=== PATIENT | male | born 1975 | race Caucasian/White ===

== ENCOUNTER 2018-08-15 20:25 | Observation (INO) | payer BC, OTHER ==
[2018-08-15] MEDS ORDERED: CLINDAMYCIN 600MG/50ML PREMIX 600 MG/50 ML BAG IVPB ONE ×2 (20:36→22:22)
[2018-08-15 20:50] LABS: BASO % 0.3 % (0-6); EOS % 4.3 % (0-6); GRAN % 55.5 % (47-80); HEMATOCRIT 43.8 % (42.0-52.0); HEMOGLOBIN 15.2 gm/dl (14.0-18.0); LYMPH % 28.3 % (16-45); MEAN CELL VOLUME 88.5 fl (81-97); MEAN CORPUSCULAR HEMOGLOBIN 30.7 pg (27-33); MEAN CORPUSCULAR HGB CONC 34.7 g/dl (32-36); MEAN PLATELET VOLUME 9.6 fl (7.4-10.4); MONO % 11.6 % (0-9); PLATELET COUNT 286 K/uL (130-400); RED BLOOD COUNT 4.95 M/uL (4.40-5.70); RED CELL DISTRIBUTION WIDTH 12.8 % (11.5-14.5); WHITE BLOOD COUNT W/O DIFF 8.6 K/uL (4.2-12.2)
--- NOTE | 2018-08-15 20:50 | Emergency Department Record ---
History of Present Illness - General Chief complaint: Lower Extremity Pain Stated complaint: LT LEG INFECTION Time Seen by Provider: 08/15/18 20:35 Source: Patient Mode of Arrival: Ambulatory Limitations: No limitations - History of Present Illness Initial comments: 43 yo male presents to ED for evaluation of a worsening skin infection overlying the left knee. Patient reports that he was seen 48 hours ago at an Urgent Care, started on Levaquin. Patient reports that his redness and warmth has spread beyond previously outlined area. Patient reports a history of NIDDM. Patient denies fevers, chills, nausea, or vomiting symptoms. MD Complaint: Other Onset/Timin -: Days(s) Location: Left, Knee Severity scale (1-10): 4 Consistency: Constant Improves with: Rest Worsens with: Walking, Weight bearing Associated Symptoms: Denies other symptoms - Related Data Home Medications Medication Instructions Recorded Confirmed Last Taken Atenolol 100 mg PO DAILY 08/15/18 08/15/18 08/15/18 Levofloxacin [Levaquin] 500 mg PO DAILY 08/15/18 08/15/18 08/15/18 Losartan Potassium 100 mg PO DAILY 08/15/18 08/15/18 08/15/18 Metformin HCl 1,000 mg PO BID 08/15/18 08/15/18 08/15/18 Allergies Allergy/AdvReac Type Severity Reaction Status Date / Time No Known Drug Allergies Allergy Verified 08/15/18 20:44 Travel Screening - Travel/Exposure Within Last 30 Days Have you traveled within the last 30 days?: No - Travel Symptoms Symptom Screening: None Review of Systems Constitutional: Denies: Chills, Fever, Malaise, Night sweats Eyes: Denies: Eye discharge, Eye pain ENT: Denies: Congestion, Ear pain, Epistaxis Respiratory: Denies: Cough, Dyspnea Cardiovascular: Denies: Chest pain, Dyspnea on exertion Endocrine: Denies: Fatigue Gastrointestinal: Denies: Abdominal pain, Nausea, Vomiting Genitourinary: Denies: Incontinence, Retention Musculoskeletal: Denies: Arthralgia, Back pain, Gout, Joint swelling Skin: Reports: Change in color, Other (Erythema of the left knee extending to the popliteal region on examination.). Denies: Bruising, Change in hair/nails Neurological: Denies: Abnormal gait, Confusion, Headache, Seizure Psychiatric: Denies: Anxiety Hematological/Lymphatic: Denies: Anemia, Blood Clots Past Medical History - SOCIAL HISTORY Smoking Status: Never smoker - RESPIRATORY Hx Respiratory Disorders: No - CARDIOVASCULAR Hx Cardio Disorders: Yes Hx Hypertension: Yes - NEURO Hx Neuro Disorders: No - GI Hx GI Disorders: No - Hx Genitourinary Disorders: No - ENDOCRINE Hx Endocrine Disorders: Yes Hx Diabetes: Yes - MUSCULOSKELETAL Hx Musculoskeletal Disorders: No - PSYCH Hx Psych Problems: No - HEMATOLOGY/ONCOLOGY Hx Hematology/Oncology Disorders: No Family Medical History Any Significant Family History?: Yes Hx Diabetes: Mother Hx Heart Disease: Father Hx HTN: Father Physical Exam - General General Appearance: Alert, Oriented x3, Cooperative, Mild distress Limitations: No limitations - Head Head exam: Atraumatic, Normocephalic, Normal inspection Head exam detail: negative: Abrasion, Contusion, Fraser's sign, General tenderness, Hematoma, Laceration - Eye Eye exam: Normal appearance. negative: Conjunctival injection, Periorbital swelling, Periorbital tenderness, Scleral icterus - ENT Ear exam: negative: Auricular hematoma, Auricular trauma Nasal Exam: negative: Active bleeding, Discharge, Dried blood, Foreign body Mouth exam: negative: Drooling, Laceration, Muffled voice, Tongue elevation - Neck Neck exam: Normal inspection. negative: Meningismus, Tenderness - Respiratory Respiratory exam: Normal lung sounds bilaterally. negative: Rales, Respiratory distress, Rhonchi, Stridor - Cardiovascular Cardiovascular Exam: Regular rate, Normal rhythm, Normal heart sounds - GI/Abdominal GI/Abdominal exam: Soft. negative: Rebound, Rigid, Tenderness - Rectal Rectal exam: Deferred - exam: Deferred - Extremities Extremities exam: Other (Erythema and warmth to the left knee anteriorly extending laterally to the politeal region on examination, no evidence for septic joint on examination.). negative: Calf tenderness, Pedal edema, Tenderness - Back Back exam: Denies: CVA tenderness (R), CVA tenderness (L) - Neurological Neurological exam: Alert, Normal gait, Oriented X3 - Psychiatric Psychiatric exam: Normal affect, Normal mood - Skin Skin exam: Normal color. negative: Abrasion Type of lesion: negative: abrasion Course Vital Signs 08/15/18 20:30 Temperature 98.4 F Pulse Rate [ 70 Pulse Ox Probe] Respiratory 20 Rate Blood Pressure 162/89 [Left Arm] Pulse Ox 96 - Reevaluation(s) Reevaluation #1: 08/15/18 21:54 Laboratory studies were reviewed, CRP 5.9, ESR 14, Glucose 144. Labs are otherwise grossly unremarkable for an acute process. Patient was updated on all results, will admit for failed outpatient treatment/ NIDDM of cellulitis of LLE. Patient agrees with the plan of care as discussed. Medical Decision Making - Lab Data Result diagrams: 08/15/18 20:45 08/15/18 20:45 Disposition Disposition: Admit Clinical Impression: Cellulitis of left lower extremity, NIDDY (non-insulin dependent diabetes mellitus in young) Disposition: Still a Patient at [facility] Decision to Admit: Admit from ER Decision to Admit Date: 08/15/18 Decision to Admit Time: 20:50 Condition: (2) Stable Forms: Patient Portal Access Time of Disposition: 20:50 Quality - Quality Measures Quality Measures: N/A - Blood Pressure Screening Does Patient Have Any of the Following: No Blood Pressure Classification: Pre-Hypertensive BP Reading Systolic Measurement: 150 Diastolic Measurement: 85 Screening for High Blood Pressure: < Pre-Hypertensive BP, F/U Documented > [ [id number]] Pre-Hypertensive Follow-up Interventions: Referral to alternative/primary care provider.
[2018-08-15 21:04] LABS: BLOOD UREA NITROGEN 12 mg/dL (6-20); CREATININE 0.7 mg/dL (0.7-1.2); EST GLOMERULAR FILTRATION RATE > 60 mL/min
[2018-08-15 21:05] LABS: TOTAL PROTEIN 7.8 g/dL (6.6-8.7)
[2018-08-15 21:07] LABS: GLUCOSE,RANDOM 144 mg/dL (74-109)
[2018-08-15 21:09] LABS: ALT/SGPT 39 U/L (<41)
[2018-08-15 21:10] LABS: ALB/GLOB RATIO 1.6 (1.1-1.8); ALBUMIN 4.8 g/dL (4.0-5.0); ALKALINE PHOSPHATASE 85 U/L (40-129); AST/SGOT 19 U/L (10.0-50.0); C-REACTIVE PROTEIN 5.89 mg/dL (<0.5)
[2018-08-15 21:23] LABS: ERYTHROCYTE SEDIMENTATION RATE 14 mm/hr (0-15)
[2018-08-15] MEDS ORDERED: ACETAMINOPHEN 500 MG TABLET PO PRN (22:22)
[2018-08-15] MEDS ORDERED: METFORMIN 500 MG TABLET PO SCH (22:22)
[2018-08-15] MEDS ORDERED: 0.9 % SODIUM CHLORIDE 1000ML 1,000 ML IV PRN (22:22)
[2018-08-16] MEDS ORDERED: LOSARTAN POTASSIUM 100 MG TABLET PO SCH (10:00)
[2018-08-16] MEDS ORDERED: ATENOLOL 50 MG TABLET PO SCH (10:00)
[2018-08-16] MEDS: PATIENT OWN MED: METFORMIN 1000 MG PO SCH ×2 (10:54→21:42)
[2018-08-16] MEDS: CLINDAMYCIN 600MG/50ML PREMIX 600 MG/50 ML BAG IVPB SCH ×2 (10:55→18:01)
--- NOTE | 2018-08-16 12:45 | History & Physical ---
History of Present Illness - Date of Service Date of Service for History & Physical: 08/16/18 - History of Present Illness Admitting Diagnosis: Cellulitis left lower extremity: failed outpatient. NIDDM History of Present Illness: PMHx: Diabetes type 2, HTN Pt states that he went to the 3 days ago for redness seen on his knee. He was given levaquin and noticed that the pain and redness was worsening. He then proceeded to come to the ED for re-evaluation. States that his last HbA1C was done 6-9 months ago and was 6.8. He states that he only uses metformin for control. Has not had any procedures done in the area or been in the hospital for the last 3 months. Vitals: T 98.4, P 70, BP 162/89, RR 20, 96% on RA Labs: CRP 6.89 otherwise wnl. Given: Clindamycin 600mg Pt states that the erythema has decreased in intensity and the pain has also gone down since starting IV abx. Travel Screening - Travel/Exposure Within Last 30 Days Have you traveled within the last 30 days?: No - Travel/Exposure Within Last Year Have you traveled outside the [place] in the last year?: No - Additonal Travel Details Have you been exposed to anyone with a communicable illness?: No - Travel Symptoms Symptom Screening: None Review of Systems Constitutional: Denies: Chills, Fever, Malaise, Night sweats Eyes: Denies: Eye discharge, Eye pain ENT: Denies: Congestion, Ear pain, Epistaxis Respiratory: Denies: Cough, Dyspnea Cardiovascular: Denies: Arrhythmia, Chest pain, Dyspnea on exertion, Edema, Murmurs, Palpitations, Syncope Endocrine: Denies: Fatigue Gastrointestinal: Denies: Abdominal pain, Constipation, Hematemesis, Melena, Nausea, Vomiting Genitourinary: Denies: Dysuria, Incontinence, Retention Musculoskeletal: Denies: Arthralgia, Back pain, Gout, Joint swelling Skin: Reports: Change in color, Other (Erythema). Denies: Bruising, Change in hair/nails Neurological: Denies: Abnormal gait, Confusion, Headache, Numbness, Seizure, Weakness Psychiatric: Denies: Anxiety Hematological/Lymphatic: Denies: Anemia, Blood Clots Past Medical History - SOCIAL HISTORY Smoking Status: Never smoker Alcohol Use: Rare Drug Use: None - RESPIRATORY Hx Respiratory Disorders: No - CARDIOVASCULAR Hx Cardio Disorders: Yes Hx Hypertension: Yes - NEURO Hx Neuro Disorders: No - GI Hx GI Disorders: No - Hx Genitourinary Disorders: No - ENDOCRINE Hx Endocrine Disorders: Yes Hx Diabetes: Yes - MUSCULOSKELETAL Hx Musculoskeletal Disorders: No - PSYCH Hx Psych Problems: No - HEMATOLOGY/ONCOLOGY Hx Hematology/Oncology Disorders: No Family Medical History Any Significant Family History?: Yes Hx Diabetes: Mother Hx Heart Disease: Father Hx HTN: Father H&P Meds/Allergies - Allergies Allergies: Allergies Allergy/AdvReac Type Severity Reaction Status Date / Time No Known Drug Allergies Allergy Verified 08/15/18 20:44 - Home Medications Home Medications Medication Instructions Recorded Confirmed Last Taken Atenolol 100 mg PO QHS 08/15/18 08/16/18 08/15/18 Levofloxacin [Levaquin] 500 mg PO DAILY 08/15/18 08/15/18 08/15/18 Losartan Potassium 100 mg PO QHS 08/15/18 08/16/18 08/15/18 Metformin HCl 1,000 mg PO BID 08/15/18 08/15/18 08/15/18 - Active Medications Active Medications: Current Medications Acetaminophen (Tylenol 500mg Tab) 1,000 mg PO Q6H PRN PRN Reason: PAIN - MILD(1-4)/FEVER Sodium Chloride () 1,000 mls @ 15 mls/hr IV .Q24H PRN PRN Reason: LARGE VOLUME IV Clindamycin Phosphate (Cleocin 600 [id number]) 600 mg in 50 mls @ 100 mls/ hr IVPB Q8H [facility] Last Infusion: 08/16/18 11:33 Dose: Infused Patient Own Med: (Losartan 100 Mg) 1 each PO QHS [facility] Patient Own Med: (Atenolol 100 Mg) 1 each PO QHS [facility] Patient Own Med: (Metformin 1000 Mg) 1 each PO BID [facility] Last Admin: 08/16/18 10:54 Dose: 1 each Physical Exam - Vital Signs Vital Signs: Vital Signs - Last 24 Hrs Temp Pulse Resp BP BP Pulse Ox 08/16/18 12:05 97.7 F 61 144/84 96 08/16/18 07:37 98.1 F 60 16 130/73 96 08/16/18 05:47 67 18 130/77 95 08/15/18 22:59 16 08/15/18 22:22 97.9 F 68 18 142/76 97 08/15/18 22:02 66 20 162/90 96 08/15/18 21:23 66 16 150/85 96 08/15/18 20:30 98.4 F 70 20 162/89 96 - General General Appearance: Alert, Oriented x3, Cooperative, No acute distress Limitations: No limitations - Head Head exam: Atraumatic, Normocephalic, Normal inspection Head exam detail: negative: Abrasion, Contusion, Fraser's sign, General tenderness, Hematoma, Laceration - Eye Eye exam: Normal appearance. negative: Conjunctival injection, Periorbital swelling, Periorbital tenderness, Scleral icterus - ENT Ear exam: negative: Auricular hematoma, Auricular trauma Nasal Exam: negative: Active bleeding, Discharge, Dried blood, Foreign body Mouth exam: negative: Drooling, Laceration, Muffled voice, Tongue elevation - Neck Neck exam: Normal inspection. negative: Meningismus, Tenderness - Respiratory Respiratory exam: Normal lung sounds bilaterally. negative: Rales, Respiratory distress, Rhonchi, Stridor - Cardiovascular Cardiovascular Exam: Regular rate, Normal rhythm, Normal heart sounds - GI/Abdominal GI/Abdominal exam: Soft. negative: Rebound, Rigid, Tenderness - Rectal Rectal exam: Deferred - exam: Deferred - Extremities Extremities exam: Other (Erythema and warmth to the left knee anteriorly,Inked this AM, no evidence for septic joint on examination.). negative: Calf tenderness, Pedal edema, Tenderness - Back Back exam: Denies: CVA tenderness (R), CVA tenderness (L) - Neurological Neurological exam: Alert, Normal gait, Oriented X3 - Psychiatric Psychiatric exam: Normal affect, Normal mood - Skin Skin exam: Dry, Erythema, Rash, Warm. negative: Abrasion, Cyanosis, Diaphoretic , Mottled, Normal color, Pallor, Petechiae, Urticaria, Vesicles Type of lesion: negative: abrasion, Abscess Description of rash: Confluent, Erythematous, Macular. negative: Blisters, Bullous, Crusting, Discharge, Fluctuant, Indurated, Papular, Petechial, Purpuic Results - Labs Result Diagrams: 08/15/18 20:45 08/15/18 20:45 Labs Last 24 Hours: Laboratory Results - last 24 hr 12/01/2608/15/18 08/16/18 20:45 20:45 05:52 WBC 8.6 RBC 4.95 Hgb 15.2 Hct 43.8 MCV 88.5 MCH 30.7 MCHC 34.7 RDW 12.8 Plt Count 286 MPV 9.6 Gran % 55.5 Lymphocytes % 28.3 Monocytes % 11.6 H Eosinophils % 4.3 Basophils % 0.3 ESR 14 Sodium 139 Potassium 3.8 Chloride 99 Carbon Dioxide 26.0 Anion Gap 14.0 BUN 12 Creatinine 0.7 Estimated GFR > 60 POC Glucose 141 H Random Glucose 144 H Calcium 9.9 Total Bilirubin 1.20 H AST 19 ALT 39 Alkaline Phosphatase 85 C-Reactive Protein 5.89 H Total Protein 7.8 Albumin 4.8 Globulin 3.0 Albumin/Globulin Ratio 1.6 VTE H&P Assessment - Risk for VTE Risk for VTE: Yes Risk Level: Low (SCD) Risk Assessment Date: 08/16/18 Risk Assessment Time: 12:51 VTE Orders Placed or Will Be Placed: Yes Plan - Detailed Diagnosis and Plan (1) Cellulitis of left lower extremity Current Visit: Yes Status: Acute Base Code: L03.116 - CELLULITIS OF LEFT LOWER LIMB Priority: High Comment: - Clinda 600mg Q 8 hours. If worsening will change to vanc and zosyn. Currently no indication for that at this time. - rpt CBC and BMP in AM - Inked erythematous area this AM. - Will monitor closely. (2) NIDDY (non-insulin dependent diabetes mellitus in young) Current Visit: Yes Status: Chronic Base Code: E13.9 - OTHER SPECIFIED DIABETES MELLITUS WITHOUT COMPLICATIONS Priority: High Comment: - Will recheck HbA1C, continue home meds. - Disposition Likely home in 24-48 hours if improving.
[2018-08-16] MEDS ORDERED: IBUPROFEN 400 MG TABLET PO PRN (20:27)
[2018-08-16] MEDS: LEVEMIR FLEXTOUCH 100 UNIT/ML INSULIN PEN SQ SCH (21:40)
[2018-08-16] MEDS: PATIENT OWN MED: ATENOLOL 100 MG PO SCH (21:42)
[2018-08-16] MEDS: PATIENT OWN MED: LOSARTAN 100 MG PO SCH (21:42)
[2018-08-17] MEDS: CLINDAMYCIN 600MG/50ML PREMIX 600 MG/50 ML BAG IVPB SCH ×3 (01:35→17:43)
[2018-08-17 06:59] LABS: BASO % 0.3 % (0-6); GRAN % 52.5 % (47-80); HEMATOCRIT 45.7 % (42.0-52.0); HEMOGLOBIN 15.4 gm/dl (14.0-18.0); LYMPH % 28.7 % (16-45); MEAN CELL VOLUME 89.8 fl (81-97); MEAN CORPUSCULAR HEMOGLOBIN 30.3 pg (27-33); MEAN CORPUSCULAR HGB CONC 33.7 g/dl (32-36); MEAN PLATELET VOLUME 9.6 fl (7.4-10.4); MONO % 11.5 % (0-9); PLATELET COUNT 276 K/uL (130-400); RED BLOOD COUNT 5.09 M/uL (4.40-5.70); RED CELL DISTRIBUTION WIDTH 12.8 % (11.5-14.5); WHITE BLOOD COUNT W/O DIFF 6.6 K/uL (4.2-12.2)
[2018-08-17 07:15] LABS: BLOOD UREA NITROGEN 13 mg/dL (6-20); CREATININE 0.7 mg/dL (0.7-1.2); EST GLOMERULAR FILTRATION RATE > 60 mL/min; GLUCOSE,RANDOM 144 mg/dL (74-109)
[2018-08-17] MEDS: PATIENT OWN MED: METFORMIN 1000 MG PO SCH ×2 (09:55→21:52)
[2018-08-17] MEDS ORDERED: NOVOLOG FLEXPEN (INSULIN ASPART) 100 UNITS/ML SQ SCH ×2 (11:45→12:03)
--- NOTE | 2018-08-17 12:09 | Physician Progress Note ---
Subjective - Date Date of Physician Progress Note: 08/17/18 - Subjective Subjective Comment: Pt feels the pain has further reduced as well as the erythema. No other concerns today. Objective - Vital Signs Vital Signs: Vital Signs - Last 24 Hrs Temp Pulse Resp BP BP Pulse Ox 08/17/18 11:21 97.9 F 58 L 20 128/71 93 L 08/17/18 07:27 97.8 F 52 L 18 127/76 96 08/17/18 04:00 98.2 F 57 L 17 130/80 95 08/16/18 21:00 16 08/16/18 20:00 98.1 F 61 17 142/66 97 08/16/18 12:05 97.7 F 61 144/84 96 - General General Appearance: Alert, Oriented x3, Cooperative, No acute distress Limitations: No limitations - Head Head exam: Atraumatic, Normocephalic, Normal inspection Head exam detail: negative: Abrasion, Contusion, Fraser's sign, General tenderness, Hematoma, Laceration - Eye Eye exam: Normal appearance. negative: Conjunctival injection, Periorbital swelling, Periorbital tenderness, Scleral icterus - ENT Ear exam: negative: Auricular hematoma, Auricular trauma Nasal Exam: negative: Active bleeding, Discharge, Dried blood, Foreign body Mouth exam: negative: Drooling, Laceration, Muffled voice, Tongue elevation - Neck Neck exam: Normal inspection. negative: Meningismus, Tenderness - Respiratory Respiratory exam: Normal lung sounds bilaterally. negative: Rales, Respiratory distress, Rhonchi, Stridor - Cardiovascular Cardiovascular Exam: Regular rate, Normal rhythm, Normal heart sounds - GI/Abdominal GI/Abdominal exam: Soft. negative: Rebound, Rigid, Tenderness - Rectal Rectal exam: Deferred - exam: Deferred - Extremities Extremities exam: Other (Erythema and warmth to the left knee anteriorly, diminishing in erythema, regressing in the inked area, still warm to touch. ). negative: Calf tenderness, Pedal edema, Tenderness - Back Back exam: Denies: CVA tenderness (R), CVA tenderness (L) - Neurological Neurological exam: Alert, Normal gait, Oriented X3 - Psychiatric Psychiatric exam: Normal affect, Normal mood - Skin Skin exam: Dry, Erythema, Rash, Warm. negative: Abrasion, Cyanosis, Diaphoretic , Mottled, Normal color, Pallor, Petechiae, Urticaria, Vesicles Type of lesion: negative: abrasion, Abscess Description of rash: Confluent, Erythematous, Macular. negative: Blisters, Bullous, Crusting, Discharge, Fluctuant, Indurated, Papular, Petechial, Purpuic Assessment and Plan - Assessment and Plan (1) Cellulitis of left lower extremity Current Visit: Yes Status: Acute Base Code: L03.116 - CELLULITIS OF LEFT LOWER LIMB Priority: High Comment: - Clinda 600mg Q 8 hours. If worsening will change to vanc and zosyn. Currently no indication for that at this time. - rpt CBC and BMP in AM - Improving. - Will monitor closely. (2) NIDDY (non-insulin dependent diabetes mellitus in young) Current Visit: Yes Status: Chronic Base Code: E13.9 - OTHER SPECIFIED DIABETES MELLITUS WITHOUT COMPLICATIONS Priority: High Comment: - A1C > 10 - Started levemir 10units QHS. - Sliding scale today - will adjust nightly dose based on novolog use today. - Started lipitor at moderate dose since diabetic > 40 yo and LDL > 70. - No indication for aspirin at this time given CVD risk < 10%. - Nutrition consulted. - Counseled in depth regarding how to control his diabetes and that he will need to give nightly insulin to himself. Will also give glucose monitor. F/u with PCP is in one week. - Disposition Disposition: Likely home in AM if still improving. Results - Labs Result Diagrams: 08/17/18 06:24 08/17/18 06:24 Labs Last 24 Hours: Laboratory Results - last 24 hr 08/16/18 08/16/18 08/17/18 12:00 22:26 06:24 WBC 6.6 RBC 5.09 Hgb 15.4 Hct 45.7 MCV 89.8 MCH 30.3 MCHC 33.7 RDW 12.8 Plt Count 276 MPV 9.6 Gran % 52.5 Lymphocytes % 28.7 Monocytes % 11.5 H Eosinophils % 7.0 H Basophils % 0.3 Sodium Potassium Chloride Carbon Dioxide Anion Gap BUN Creatinine Estimated GFR POC Glucose 161 H Random Glucose Hemoglobin A1c 10.60 H Calcium Triglycerides Cholesterol LDL Cholesterol [place] VLDL Cholesterol HDL Cholesterol 08/17/18 08/17/18 08/17/18 06:24 06:32 07:00 WBC RBC Hgb Hct MCV MCH MCHC RDW Plt Count MPV Gran % Lymphocytes % Monocytes % Eosinophils % Basophils % Sodium 138 Potassium 4.3 Chloride 100 Carbon Dioxide 29.0 Anion Gap 9.0 BUN 13 Creatinine 0.7 Estimated GFR > 60 POC Glucose 229 H Random Glucose 144 H Hemoglobin A1c Calcium 10.0 Triglycerides 95 Cholesterol 153 LDL Cholesterol [place]urd 99.0 VLDL Cholesterol 19 HDL Cholesterol 40 DVT/PE Assessment - Risk for VTE Risk for VTE: No Risk Level: Low (SCD) Risk Assessment Date: 08/16/18 Risk Assessment Time: 12:51 VTE Orders Placed or Will Be Placed: Yes - Active Medicaitons Current Medications: Current Medications Acetaminophen (Tylenol 500mg Tab) 1,000 mg PO Q6H PRN PRN Reason: PAIN - MILD(1-4)/FEVER Sodium Chloride () 1,000 mls @ 15 mls/hr IV .Q24H PRN PRN Reason: LARGE VOLUME IV Clindamycin Phosphate (Cleocin 600 [id number]) 600 mg in 50 mls @ 100 mls/ hr IVPB Q8H [facility] Last Admin: 08/17/18 11:15 Dose: 100 mls/hr Ibuprofen (Motrin 400mg) 800 mg PO Q8H PRN PRN Reason: PAIN - MILD TO MODERATE (1-7) Insulin Aspart (Novolog Flexpen) 1 unit SQ TIDINS [facility]; Protocol Insulin Detemir (Levemir Flextouch) 10 unit SQ QHS [facility] Last Admin: 08/16/18 21:40 Dose: 10 unit Patient Own Med: (Losartan 100 Mg) 1 each PO QHS [facility] Last Admin: 08/16/18 21:42 Dose: 1 each Patient Own Med: (Atenolol 100 Mg) 1 each PO QHS [facility] Last Admin: 08/16/18 21:42 Dose: 1 each Patient Own Med: (Metformin 1000 Mg) 1 each PO BID [facility] Last Admin: 08/17/18 09:55 Dose: 1 each AMI Plan - Labs Result Diagrams: 08/17/18 06:24 08/17/18 06:24
[2018-08-17] MEDS: PATIENT OWN MED: ATENOLOL 100 MG PO SCH (21:51)
[2018-08-17] MEDS: PATIENT OWN MED: LOSARTAN 100 MG PO SCH (21:51)
[2018-08-17] MEDS: LEVEMIR FLEXTOUCH 100 UNIT/ML INSULIN PEN SQ SCH (21:53)
[2018-08-17] MEDS ORDERED: DIPHENHYDRAMINE HCL 25 MG CAPSULE PO PRN (22:09)
[2018-08-18] MEDS: CLINDAMYCIN 600MG/50ML PREMIX 600 MG/50 ML BAG IVPB SCH (02:07)
[2018-08-18 08:11] LABS: BASO % 0.6 % (0-6); EOS % 7.3 % (0-6); GRAN % 48.6 % (47-80); HEMATOCRIT 47.2 % (42.0-52.0); HEMOGLOBIN 16.3 gm/dl (14.0-18.0); LYMPH % 31.9 % (16-45); MEAN CELL VOLUME 88.2 fl (81-97); MEAN CORPUSCULAR HEMOGLOBIN 30.5 pg (27-33); MEAN CORPUSCULAR HGB CONC 34.5 g/dl (32-36); MEAN PLATELET VOLUME 9.7 fl (7.4-10.4); MONO % 11.6 % (0-9); PLATELET COUNT 290 K/uL (130-400); RED BLOOD COUNT 5.35 M/uL (4.40-5.70); RED CELL DISTRIBUTION WIDTH 12.6 % (11.5-14.5); WHITE BLOOD COUNT W/O DIFF 6.6 K/uL (4.2-12.2)
[2018-08-18 08:18] LABS: BLOOD UREA NITROGEN 12 mg/dL (6-20); CREATININE 0.7 mg/dL (0.7-1.2); EST GLOMERULAR FILTRATION RATE > 60 mL/min; GLUCOSE,RANDOM 147 mg/dL (74-109)
--- NOTE | 2018-08-18 09:44 | Discharge Summary ---
Providers Discharge Summary Date: 08/18/18 Date of admission: 08/15/18 22:12 Expected Date of Discharge: 08/18/18 Attending physician: EMELIA FERRELL Primary care physician: SHAWN COSBY Physical Exam - Vital Signs Vital Signs: Vital Signs - Last 24 Hrs Temp Pulse Resp BP Pulse Ox 08/18/18 03:00 97.8 F 60 16 139/73 97 08/17/18 20:38 53 L 18 08/17/18 18:19 98.1 F 53 L 18 151/74 93 L 08/17/18 11:21 97.9 F 58 L 20 128/71 93 L - General General Appearance: Alert, Oriented x3, Cooperative, No acute distress Limitations: No limitations - Head Head exam: Atraumatic, Normocephalic, Normal inspection Head exam detail: negative: Abrasion, Contusion, Fraser's sign, General tenderness, Hematoma, Laceration - Eye Eye exam: Normal appearance. negative: Conjunctival injection, Periorbital swelling, Periorbital tenderness, Scleral icterus - ENT Ear exam: negative: Auricular hematoma, Auricular trauma Nasal Exam: negative: Active bleeding, Discharge, Dried blood, Foreign body Mouth exam: negative: Drooling, Laceration, Muffled voice, Tongue elevation - Neck Neck exam: Normal inspection. negative: Meningismus, Tenderness - Respiratory Respiratory exam: Normal lung sounds bilaterally. negative: Rales, Respiratory distress, Rhonchi, Stridor - Cardiovascular Cardiovascular Exam: Regular rate, Normal rhythm, Normal heart sounds - GI/Abdominal GI/Abdominal exam: Soft. negative: Rebound, Rigid, Tenderness - Rectal Rectal exam: Deferred - exam: Deferred - Extremities Extremities exam: Other (Erythema and warmth to the left knee anteriorly, diminishing in erythema, regressing in the inked area, still warm to touch. ). negative: Calf tenderness, Pedal edema, Tenderness - Back Back exam: Denies: CVA tenderness (R), CVA tenderness (L) - Neurological Neurological exam: Alert, Normal gait, Oriented X3 - Psychiatric Psychiatric exam: Normal affect, Normal mood - Skin Skin exam: Dry, Erythema, Rash, Warm. negative: Abrasion, Cyanosis, Diaphoretic , Mottled, Normal color, Pallor, Petechiae, Urticaria, Vesicles Type of lesion: negative: abrasion, Abscess Description of rash: Confluent, Erythematous, Macular. negative: Blisters, Bullous, Crusting, Discharge, Fluctuant, Indurated, Papular, Petechial, Purpuic Hospitalization - Hospitalization Admission Diagnosis: Cellulitis left lower extremity: failed outpatient. NIDDM - Problem List/Discharge Diagnosis (1) Cellulitis of left lower extremity Status: Acute Base Code: L03.116 - CELLULITIS OF LEFT LOWER LIMB Comment: - Improved with clindamycin. (2) NIDDY (non-insulin dependent diabetes mellitus in young) Status: Chronic Base Code: E13.9 - OTHER SPECIFIED DIABETES MELLITUS WITHOUT COMPLICATIONS Comment: - A1C > 10 - Started levemir 10units QHS. - Sliding scale - required 2 units yesterday. - Started lipitor at moderate dose since diabetic > 40 yo and LDL > 70. - No indication for aspirin at this time given CVD risk < 10%. - Nutrition consulted. - Counseled in depth regarding how to control his diabetes and that he will need to give nightly insulin to himself. - F/u with PCP is in one week. - Disposition Home - Hospitalization Course Disposition: Home, Self-Care Hospital Course: PMHx: Diabetes type 2, HTN ED course: 08/15/18: Pt states that he went to the UC 3 days ago for redness seen on his knee. He was given levaquin and noticed that the pain and redness was worsening. He then proceeded to come to the ED for re-evaluation. States that his last HbA1C was done 6-9 months ago and was 6.8. He states that he only uses metformin for control. Has not had any procedures done in the area or been in the hospital for the last 3 months. Vitals: T 98.4, P 70, BP 162/89, RR 20, 96% on RA Labs: CRP 6.89 otherwise wnl. Given: Clindamycin 600mg Pt states that the erythema has decreased in intensity and the pain has also gone down since starting IV abx. Hospital course: 08/15/18-08/18/18: Pt improved significantly over his hospital stay with IV clindamycin. He did get a mild rash during his stay but did well with benadryl to relieve itching. Unclear if it was due to clindamycin or not. The pt did not have any other symptoms associated with the rash except pruritus. HbA1C was checked and was 10.6. He was started on 10 units of levemir QHS given that HbA1C > 10. He was also started on lipitor given that he is diabetic> 41 yo with LDL> 70. Pt did not have an indication for aspirin given that his CVD risk score < 10%. He tolerated the levemir well and did need 2-4 units of novolog during the day. His D/C dose of levemir was increased to 12 units nightly. He was seen by dietary who helped him understand what diet he should be on. He was counseled regarding glucose checks 4 times daily and to log. He stated he already had a monitor and supplies at home. He was instructed to show his log to his PCP on monday as well as continue clindamycin PO for 8 days. Abnormal Labs: Abnormal Lab Results 08/15/18 08/15/18 08/16/18 Range/Units 20:45 20:45 05:52 Monocytes % 11.6 H (0-9) % Eosinophils % (0-6) % Chloride (98-107) mmol/L Carbon Dioxide (22-29) mmol/L POC Glucose 141 H (70-110) mg/dL Random Glucose 144 H (74-109) mg/dL Hemoglobin A1c (4.0-6.00) % Calcium (8.6-10.0) mg/dL Total Bilirubin 1.20 H (0.2-1.0) mg/dL C-Reactive Protein 5.89 H (<0.5) mg/dL 08/16/18 08/16/18 08/17/18 Range/Units 12:00 22:26 06:24 Monocytes % 11.5 H (0-9) % Eosinophils % 7.0 H (0-6) % Chloride (98-107) mmol/L Carbon Dioxide (22-29) mmol/L POC Glucose 161 H (70-110) mg/dL Random Glucose (74-109) mg/dL Hemoglobin A1c 10.60 H (4.0-6.00) % Calcium (8.6-10.0) mg/dL Total Bilirubin (0.2-1.0) mg/dL C-Reactive Protein (<0.5) mg/dL 08/17/18 08/17/18 08/17/18 Range/Units 06:24 07:00 17:00 Monocytes % (0-9) % Eosinophils % (0-6) % Chloride (98-107) mmol/L Carbon Dioxide (22-29) mmol/L POC Glucose 229 H 171 H (70-110) mg/dL Random Glucose 144 H (74-109) mg/dL Hemoglobin A1c (4.0-6.00) % Calcium (8.6-10.0) mg/dL Total Bilirubin (0.2-1.0) mg/dL C-Reactive Protein (<0.5) mg/dL 08/17/18 08/18/18 08/18/18 Range/Units 22:34 07:45 07:45 Monocytes % 11.6 H (0-9) % Eosinophils % 7.3 H (0-6) % Chloride 97 L (98-107) mmol/L Carbon Dioxide 30.0 H (22-29) mmol/L POC Glucose 157 H (70-110) mg/dL Random Glucose 147 H (74-109) mg/dL Hemoglobin A1c (4.0-6.00) % Calcium 10.8 H (8.6-10.0) mg/dL Total Bilirubin (0.2-1.0) mg/dL C-Reactive Protein (<0.5) mg/dL Condition at Discharge: (2) Stable VTE Discharge VTE Reason For No Overlap Therapy: Not Indicated Discharge Medications - Discharge Medications Prescriptions: Insulin Detemir [Levemir Flextouch] 12 unit SQ QHS #1 syringe Atorvastatin Calcium [Lipitor] 20 mg PO DAILYWM #30 tab Clindamycin HCl [Cleocin HCl] 300 mg PO Q6H 8 Days #32 capsule Home Medications: Ambulatory Orders Atenolol 100 mg PO QHS 08/15/18 [Last Taken 08/15/18] Losartan Potassium 100 mg PO QHS 08/15/18 [Last Taken 08/15/18] Metformin HCl 1,000 mg PO BID 08/15/18 [Last Taken 08/15/18] Atorvastatin Calcium [Lipitor] 20 mg PO DAILYWM #30 tab 08/18/18 [Last Taken Unknown] Clindamycin HCl [Cleocin HCl] 300 mg PO Q6H 8 Days #32 capsule 08/18/18 [Last Taken Unknown] Insulin Detemir [Levemir Flextouch] 12 unit SQ QHS #1 syringe 08/18/18 [Last Taken Unknown] Discharge Plan - Discharge Instructions Activity at Discharge: Increase Activity as Tolerated Diet at Discharge: Diabetic Diet Instructions: Insulin Detemir (By injection), Cellulitis (DC), Type 2 Diabetes in Adults (GEN) Additional Instructions: 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 If worsens go to the ER. If itchy rash persists can use benadryl and claritin as needed. Start lipitor as prescribed. Start levemir 12 Units at bedtime. Continue metformin as prescribed. Test glucose before each meal and log for your doctor to see on Monday - this way he can further increase your insulin dose if needed. Work on diet and exercise to reverse diabetes naturally. Quality Measures - Quality Measures Quality Measures: Documentation of Current Medications in Medical Record, Screening for High Blood Pressure and F/U Documented - Current Medications Quality Measure: Measure #130: Documentation of Current Medications Documentation of Current Medications: <Current Medications Documented/Reviewed> [G8427] - Blood Pressure Screening Quality Measure: Screening for High Blood Pressure and Follow-Up Documented Does Patient Have Any of the Following: Active Dx of HTN Blood Pressure Classification: Pre-Hypertensive BP Reading Systolic Measurement: 139 Diastolic Measurement: 73 Screening for High Blood Pressure: Patient Exclusion, Hx of HTN [G9744] - Elder Abuse Suspicion Index EASI Reference Information: Zoraida PEARCE, Yaritza C, Cesar D, Allie Schultz.Development and validation of a tool to assist physicians identification of elder abuse: The Elder Abuse Suspicion Index (EASI ). Journal of Elder Abuse and Neglect, 2008; 20 (3): 276-300.
[2018-08-18] MEDS ORDERED: ATORVASTATIN 20 MG TABLET PO SCH (10:00)
[2018-08-18] MEDS: PATIENT OWN MED: METFORMIN 1000 MG PO SCH (10:11)
--- NOTE | 2018-08-18 10:29 | Inpatient Certification ---
Inpatient Certification Admit to inpatient care: Based on my medical assessment, after consideration of patient's risk factors (age, co-morbidities and patient presenting symptoms and acuity), I expect that this patient will remain in the hospital greater than or equal to two midnights and that the services needed warrant inpatient care because: Patient Risk Factors: [co-morbidities] Estimated length of stay: [3] The patient may reasonably be expected to be discharged or transferred to a hospital within 96 hours after admission to [facility]. Services needed: [IV abx, dietary] Post hospital care (if known): [] I certify that my determination is in accordance with my understanding of Medicare requirements for reasonable and necessary inpatient services. 08/18/18 10:28
== END 2018-08-18 10:26 | disposition home or self-care (01) ==
LOC: ER 20:25 → MEDSURG 22:12 → INTOOBSV 22:12 → OBSVTOIN 22:12
PROVIDERS: ADMIT Internal Medicine; ATTEND Internal Medicine
DX: L03.116 Cellulitis of left lower limb (principal); E13.9 Other specified diabetes mellitus without complications; I10 Essential (primary) hypertension; E03.9 Hypothyroidism, unspecified; E11.9 Type 2 diabetes mellitus without complications
CPT/HCPCS: 36416; 80048; 80053; 80061; 82948; 83036; 85025; 85651; 86140; 96361; 96374; 96375; 99217; 99220; 99223; 99225; 99232; 99238; 99285

== ENCOUNTER 2018-08-23 09:44 | Emergency (ER) | payer BC ==
[2018-08-23] MEDS ORDERED: PREDNISONE 20 MG TAB PO ONE (09:55)
--- NOTE | 2018-08-23 10:01 | Emergency Department Record ---
History of Present Illness - General Chief complaint: Rash Stated complaint: RASH Source: Patient Mode of Arrival: Ambulatory Limitations: No limitations - History of Present Illness Initial comments: 43 yo male presents with a rash for one week that itches. He was initially seen as an inpatient for left knee cellulitis. He developed some mild itchy rash while in the hospital on Clindamycin. He was discharged on Clindamycin. The rash has spread, now generalized and very itchy. He denies cough or shortness of breath. No vomiting. He had a few mild episodes of diarrhea. No lip or facial swelling. He has DM. Glucose controlled. He has a PCP appointment tomorrow but did not want to wait. MD complaint: Rash -: Week(s) (1) Location: Generalized Severity: Moderate Quality: Other (itches) Consistency: Constant Improves with: None Worsens with: Medication Context: Recent antibiotic, New medication Associated symptoms: Denies other symptoms Treatments Prior to Arrival: Benadryl - Related Data Previous Rx's Medication Instructions Recorded Atorvastatin Calcium [Lipitor] 20 mg PO DAILYWM #30 tab 08/18/18 Insulin Detemir [Levemir Flextouch] 12 unit SQ QHS #1 syringe 08/18/18 Cephalexin [Keflex] 500 mg PO TID #21 cap 08/23/18 Loratadine [Claritin] 10 mg PO DAILY #30 tablet 08/23/18 Prednisone [Prednisone 20Mg] 20 mg PO BID #10 tab 08/23/18 Allergies Allergy/AdvReac Type Severity Reaction Status Date / Time clindamycin Allergy RASH Verified 08/23/18 09:54 Review of Systems Constitutional: Denies: Chills, Fever, Malaise, Weakness Eyes: Denies: Eye discharge ENT: Denies: Congestion, Ear pain, Throat pain Respiratory: Denies: Cough, Dyspnea, Hemoptysis, Stridor, Wheezes Cardiovascular: Denies: Chest pain, Palpitations, Syncope Endocrine: Denies: Fatigue Gastrointestinal: Denies: Abdominal pain, Diarrhea, Nausea, Vomiting Genitourinary: Denies: Dysuria, Frequency Musculoskeletal: Denies: Arthralgia, Back pain, Joint swelling, Myalgia Skin: Reports: Change in color, Rash Neurological: Denies: Headache Psychiatric: Denies: Anxiety Hematological/Lymphatic: Denies: Blood Clots, Easy bleeding, Easy bruising, Swollen glands Past Medical History - SOCIAL HISTORY Smoking Status: Never smoker Drug Use: None - RESPIRATORY Hx Respiratory Disorders: No - CARDIOVASCULAR Hx Cardio Disorders: Yes Hx Hypertension: Yes - NEURO Hx Neuro Disorders: No - GI Hx GI Disorders: No - Hx Genitourinary Disorders: No - ENDOCRINE Hx Endocrine Disorders: Yes Hx Diabetes: Yes - MUSCULOSKELETAL Hx Musculoskeletal Disorders: No - PSYCH Hx Psych Problems: No - HEMATOLOGY/ONCOLOGY Hx Hematology/Oncology Disorders: No Family Medical History Hx Diabetes: Mother Hx Heart Disease: Father Hx HTN: Father Physical Exam - General General Appearance: Alert, Oriented x3, Cooperative, No acute distress Limitations: No limitations - Head Head exam: Atraumatic. negative: Normal inspection (some rash on the scalp) - Eye Eye exam: Normal appearance. negative: Conjunctival injection - ENT ENT exam: Normal exam Ear exam: Normal external inspection Nasal Exam: Normal inspection Mouth exam: Normal external inspection - Neck Neck exam: negative: Normal inspection - Respiratory Respiratory exam: Normal lung sounds bilaterally. negative: Chest wall tenderness, Decreased breath sounds, Rhonchi, Stridor, Wheezes - Cardiovascular Cardiovascular Exam: Regular rate, Normal rhythm, Normal heart sounds - GI/Abdominal GI/Abdominal exam: Soft - Rectal Rectal exam: Deferred - exam: Deferred - Extremities Extremities exam: Full ROM, Normal capillary refill. negative: Normal inspection, Tenderness Image of Full Body: 1 - mild erythema of the knee that is non tender. the rash is the same rash as the remainder of the body. it itches similar to remaining rash. - Back Back exam: Denies: Normal inspection, CVA tenderness (R), CVA tenderness (L) - Neurological Neurological exam: Alert, Oriented X3 - Psychiatric Psychiatric exam: Normal affect, Normal mood - Skin Skin exam: Erythema, Rash, Urticaria Distribution of rash: Back, Chest, Face, Generalized, Head, Neck, Thorax, RUE, LUE, RLE, LLE Description of rash: Erythematous, Macular, Papular, Urticarial. negative: Blisters, Bullous, Crusting, Discharge, Fluctuant, Indurated, Petechial, Purpuic , Swelling, Tenderness, Vesicular Course - Reevaluation(s) Reevaluation #1: The rash is likely a drug reaction vs allergic He will stop the Clindamycin at this time and change to Keflex He will be given an Rx for Claritin and Prednisone He was warned this will increase his glucose temporarily He has excellent follow up tomorrow and can discuss short term glucose control with his PCP 08/23/18 10:00 Disposition Disposition: Discharge Clinical Impression: Pruritus, Rash, Drug reaction Disposition: Home, Self-Care Condition: (1) Good Instructions: Acute Rash (ED) Additional Instructions: Follow up tomorrow as scheduled Monitor your blood sugar with each meal and discuss this with your doctor tomorrow Prescriptions: Cephalexin [Keflex] 500 mg PO TID #21 cap Loratadine [Claritin] 10 mg PO DAILY #30 tablet Prednisone [Prednisone 20Mg] 20 mg PO BID #10 tab Forms: Patient Portal Access Time of Disposition: 10:03 Quality - Quality Measures Quality Measures: N/A - Blood Pressure Screening Does Patient Have Any of the Following: Active Dx of HTN Blood Pressure Classification: Pre-Hypertensive BP Reading Systolic Measurement: 151 Diastolic Measurement: 84 Screening for High Blood Pressure: Patient Exclusion, Hx of HTN [G9744]
== END 2018-08-23 10:25 | disposition home or self-care (01) ==
LOC: ER 09:44
DX: L27.0 Generalized skin eruption due to drugs and medicaments taken internally (principal); T36.8X5A Adverse effect of other systemic antibiotics, initial encounter; R19.7 Diarrhea, unspecified; E11.9 Type 2 diabetes mellitus without complications; Z79.4 Long term (current) use of insulin; I10 Essential (primary) hypertension
CPT/HCPCS: 99282 ×2; J7512

== ENCOUNTER 2019-09-22 12:41 | Emergency (ER) | payer BC ==
[2019-09-22] MEDS ORDERED: IPRATROPIUM/ALBUTEROL (0.5MG/3MG) NEB INH ONE (13:14)
[2019-09-22] MEDS ORDERED: METHYLPREDNISOLONE PF 125MG/VIAL IVP ONE (13:17)
--- NOTE | 2019-09-22 13:28 | Emergency Department Record ---
History of Present Illness - General Chief Complaint: Cough Stated Complaint: CHEST CONGESTION Time Seen by Provider: 09/22/19 12:58 Source: Patient Mode of Arrival: Ambulatory Limitations: No limitations - History of Present Illness Initial Comments: pt has had cough and congestion for 12 days. he has had a course of zithromax and doxycycline and 2 days of steroids Complaint: Cough, Nasal congestion Onset/Timin -: Week(s) Consistency: Constant Improves With: Nothing Worsens With: Nothing Associated Symptoms: Cough, Nasal congestion, Rhinorrhea - Related Data Previous Rx's Medication Instructions Recorded Atorvastatin Calcium [Lipitor] 20 mg PO DAILYWM #30 tab 08/18/18 Insulin Detemir [Levemir Flextouch] 12 unit SQ QHS #1 syringe 08/18/18 Loratadine [Claritin] 10 mg PO DAILY #30 tablet 08/23/18 Allergies Allergy/AdvReac Type Severity Reaction Status Date / Time clindamycin Allergy RASH Verified 09/22/19 13:05 Travel Screening - Travel/Exposure Within Last 30 Days Have you traveled within the last 30 days?: No - Travel/Exposure Within Last Year Have you traveled outside the [place] in the last year?: No - Additonal Travel Details Have you been exposed to anyone with a communicable illness?: No Review of Systems Reviewed: No additional complaints except as noted below Constitutional: Reports: As per HPI. Denies: Chills, Fever, Malaise, Night sweats, Weakness, Weight change Eyes: Reports: As per HPI. Denies: Eye discharge, Eye pain, Photophobia, Vision change ENT: Reports: As per HPI, Congestion, Throat pain. Denies: Dental pain, Ear pain, Epistaxis, Hearing loss Respiratory: Reports: As per HPI. Denies: Cough, Dyspnea, Hemoptysis, Stridor, Wheezes Cardiovascular: Reports: As per HPI. Denies: Arrhythmia, Chest pain, Dyspnea on exertion, Edema, Murmurs, Orthopnea, Palpitations, Paroxysmal nocturnal dyspnea, Rheumatic Fever, Syncope Endocrine: Reports: As per HPI. Denies: Fatigue, Heat or cold intolerance, Polydipsia, Polyuria Gastrointestinal: Reports: As per HPI. Denies: Abdominal pain, Constipation, Diarrhea, Hematemesis, Hematochezia, Melena, Nausea, Vomiting Genitourinary: Reports: As per HPI. Denies: Dysuria, Frequency, Hematuria, Incontinence, Retention, Testicular pain, Testicular mass, Urgency Musculoskeletal: Reports: As per HPI. Denies: Arthralgia, Back pain, Gout, Joint swelling, Myalgia, Neck pain Skin: Reports: As per HPI. Denies: Bruising, Change in color, Change in hair/nails, Lesions, Pruritus, Rash Neurological: Reports: As per HPI. Denies: Abnormal gait, Confusion, Headache, Numbness, Paresthesias, Seizure, Tingling, Tremors, Vertigo, Weakness Psychiatric: Reports: As per HPI. Denies: Anxiety, Auditory hallucinations, Depression, Homicidal thoughts, Suicidal thoughts, Visual hallucinations Hematological/Lymphatic: Reports: As per HPI. Denies: Anemia, Blood Clots, Easy bleeding, Easy bruising, Swollen glands Past Medical History - SOCIAL HISTORY Smoking Status: Former smoker Alcohol Use: None Drug Use: None - RESPIRATORY Hx Respiratory Disorders: No - CARDIOVASCULAR Hx Cardio Disorders: Yes Hx Hypertension: Yes - NEURO Hx Neuro Disorders: No - GI Hx GI Disorders: No - Hx Genitourinary Disorders: No - ENDOCRINE Hx Endocrine Disorders: Yes Hx Diabetes: Yes (type 2) - MUSCULOSKELETAL Hx Musculoskeletal Disorders: No - PSYCH Hx Psych Problems: No - HEMATOLOGY/ONCOLOGY Hx Hematology/Oncology Disorders: No Family Medical History Any Significant Family History?: No Hx Diabetes: Mother Hx Heart Disease: Father Hx HTN: Father Physical Exam - General General Appearance: Alert, Oriented x3, Cooperative, Mild distress - Head Head exam: Normal inspection - Eye Eye exam: Normal appearance, PERRL, EOMI Pupils: Normal accommodation - ENT ENT exam: Normal exam, Mucous membranes moist, Normal external ear exam, Normal orophraynx Ear exam: Normal external inspection. negative: External canal tenderness Nasal Exam: Normal inspection. negative: Discharge, Sinus tenderness Mouth exam: Normal external inspection, Tongue normal Teeth exam: Normal inspection. negative: Dental caries Throat exam: Normal inspection. negative: Tonsillar erythema, Tonsillar exudate - Neck Neck exam: Normal inspection, Full ROM. negative: Tenderness - Respiratory Respiratory exam: Normal lung sounds bilaterally. negative: Respiratory distress - Cardiovascular Cardiovascular Exam: Regular rate, Normal rhythm, Normal heart sounds - GI/Abdominal GI/Abdominal exam: Soft, Normal bowel sounds. negative: Tenderness - Rectal Rectal exam: Deferred - exam: Deferred - Extremities Extremities exam: Normal inspection, Full ROM, Normal capillary refill. negative: Tenderness - Back Back exam: Reports: Normal inspection, Full ROM. Denies: Muscle spasm, Rash noted, Tenderness - Neurological Neurological exam: Alert, CN II-XII intact, Normal gait, Oriented X3 - Psychiatric Psychiatric exam: Normal affect, Normal mood - Skin Skin exam: Dry, Intact, Normal color, Warm Course Vital Signs 09/22/19 09/22/19 12:51 12:55 Temperature 97.6 F 97.6 F Pulse Rate 88 Pulse Rate [ 88 Left] Respiratory 20 18 Rate Blood Pressure 164/95 Blood Pressure 192/96 [Right Arm] Pulse Ox 96 96 Medical Decision Making - Lab Data Result diagrams: 09/22/19 13:30 09/22/19 13:30 Disposition Disposition: Discharge Clinical Impression: Viral infection Hyperglycemia due to type 2 diabetes mellitus Qualifiers: 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 return sooner if worse. push fluids. Quality - Quality Measures Quality Measures: N/A - Blood Pressure Screening Does Patient Have Any of the Following: No Blood Pressure Classification: Hypertensive Reading Systolic Measurement: 164 Diastolic Measurement: 95 Screening for High Blood Pressure: < First Hypertensive BP, F/U Documented > [G8950] First Hypertensive Follow-up Interventions: Follow-up with rescreen GT 1 day and LT 4 weeks.
[2019-09-22 13:37] LABS: ABSOLUTE NEUTROPHIL COUNT 4.68; BASO % 0.3 % (0-6); EOS % 2.3 % (0-6); GRAN % 54.2 % (47-80); HEMOGLOBIN 15.3 gm/dl (14.0-18.0); LYMPH % 32.9 % (16-45); MEAN CELL VOLUME 88.6 fl (81-97); MEAN CORPUSCULAR HEMOGLOBIN 30.1 pg (27-33); MEAN PLATELET VOLUME 9.5 fl (7.4-10.4); MONO % 10.3 % (0-9); PLATELET COUNT 343 K/uL (130-400); RED BLOOD COUNT 5.08 M/uL (4.40-5.70); RED CELL DISTRIBUTION WIDTH 12.5 % (11.5-14.5); WHITE BLOOD COUNT W/O DIFF 8.7 K/uL (4.2-12.2)
[2019-09-22 13:49] LABS: BLOOD UREA NITROGEN 15 mg/dL (6-20); CREATININE 0.8 mg/dL (0.7-1.2); EST GLOMERULAR FILTRATION RATE > 60 mL/min; INFLUENZA A NEGATIVE (NEGATIVE); INFLUENZA B NEGATIVE (NEGATIVE)
[2019-09-22 13:52] LABS: GLUCOSE,RANDOM 227 mg/dL (74-109)
--- NOTE | 2019-09-22 14:10 | RADIOLOGY REPORT ---
EXAMINATION: Two View Chest Radiographs EXAM DATE: 09/22/2019 1:50 PM TECHNIQUE: Frontal and lateral views INDICATION: cough COMPARISON: None ENCOUNTER: Not applicable FINDINGS: The heart, mediastinum, and pulmonary vasculature are normal. No lung consolidation or pleural effu sions are present. IMPRESSION: No acute cardiopulmonary disease is present. Dictated by: Adam Tejada MD on 09/22/2019 2:06 PM. .
== END 2019-09-22 14:31 | disposition home or self-care (01) ==
LOC: ER 12:41
DX: B34.9 Viral infection, unspecified (principal); R05 Cough; R09.81 Nasal congestion; Z87.891 Personal history of nicotine dependence; I10 Essential (primary) hypertension; E11.65 Type 2 diabetes mellitus with hyperglycemia; Z79.4 Long term (current) use of insulin
CPT/HCPCS: 71046; 80048; 85025; 87400; 94640; 96374; 99284; J2930